=== PATIENT | male | born 1975 | race Caucasian/White ===

== ENCOUNTER 2017-03-02 01:53 | Emergency (ER) | payer OTHER ==
[~2017-03-02] VITALS: Ht 172.7 cm; Wt 80.0 kg
[~2017-03-02 01:53] MED LIST: ASPI81TA82 PO; FISH500C PO; TAB-TAB PO
[2017-03-02 01:56] VITALS: RESP 16
[2017-03-02 02:06] VITALS: BP 128/78; PULSE 124; RESP 16; O2SAT 96
[2017-03-02] MEDS ORDERED: TETANUS/DIPHTHERIA TOXOID ADULT 0.5 ML VIAL IM ONE (02:15)
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
== END 2017-03-02 03:52 ==
LOC: NEPC 01:53
DX: S00.83XA Contusion of other part of head, initial encounter (principal); F10.920 Alcohol use, unspecified with intoxication, uncomplicated; R41.82 Altered mental status, unspecified; M54.2 Cervicalgia; F17.200 Nicotine dependence, unspecified, uncomplicated; Y04.0XXA Assault by unarmed brawl or fight, initial encounter; Z23 Encounter for immunization
CPT/HCPCS: 70450; 70486; 72125; 90471; 90714

== ENCOUNTER 2017-03-02 05:07 | Emergency (ER) | payer SELFPAY ==
[2017-03-02 05:15] VITALS: BP 141/93; PULSE 117; RESP 20; TEMP 98.2; O2SAT 98
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
[2017-03-02 05:23] VITALS: BP 141/93; PULSE 117; RESP 20; TEMP 98.2; O2SAT 96
== END 2017-03-02 05:52 | disposition left against medical advice (07) ==
LOC: NEPD 05:07
DX: R20.2 Paresthesia of skin (principal); R46.89 Other symptoms and signs involving appearance and behavior; Z72.0 Tobacco use; Z53.29 Procedure and treatment not carried out because of patient's decision for other reasons
CPT/HCPCS: 99283

== ENCOUNTER 2017-11-14 11:49 | Emergency (ER) | payer SELFPAY ==
[~2017-11-14] VITALS: Ht 175.3 cm; Wt 82.0 kg
[2017-11-14 11:52] VITALS: BP 149/101; PULSE 92; RESP 18; TEMP 98.6; O2SAT 99
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
[2017-11-14] MEDS ORDERED: CEPH-460 PO (12:05)
[2017-11-14] MEDS ORDERED: IBUP1TAB7 PO (12:05)
[2017-11-14] MEDS ORDERED: MUPI2OIN TOPICAL (12:06)
[2017-11-14] MEDS ORDERED: CEPHALEXIN MONOHYDRATE 500 MG CAP PO ONE (12:15)
[2017-11-14] MEDS ORDERED: IBUPROFEN 800 MG TAB PO ONE (12:15)
== END 2017-11-14 12:46 | disposition home or self-care (01) ==
LOC: PHEFT 11:49
DX: S00.81XA Abrasion of other part of head, initial encounter (principal); S00.01XA Abrasion of scalp, initial encounter; F17.210 Nicotine dependence, cigarettes, uncomplicated; Y08.89XA Assault by other specified means, initial encounter; Y93.89 Activity, other specified; Y92.481 Parking lot as the place of occurrence of the external cause
CPT/HCPCS: 99283